=== PATIENT | male | born 1995 | race African-American/Black ===

== ENCOUNTER 2017-06-21 01:00 | Emergency (ER) | payer SELFPAY ==
[~2017-06-21] VITALS: Ht 188 cm; Wt 113.4 kg
[2017-06-21 01:05] VITALS: BP_SYST 130
[2017-06-21] MEDS ORDERED: ceFAZolin SODIUM 1 GM VIAL IM ONE (01:30)
[2017-06-21 02:06] VITALS: BP_SYST 125
== END 2017-06-21 02:06 | disposition home or self-care (01) ==
LOC: SED 01:00
DX: S91.311A Laceration without foreign body, right foot, initial encounter (principal); L03.115 Cellulitis of right lower limb; X58.XXXA Exposure to other specified factors, initial encounter; Y93.89 Activity, other specified; Y92.89 Other specified places as the place of occurrence of the external cause; Y99.8 Other external cause status
CPT/HCPCS: 96372; 99283; J0690